=== PATIENT | male | born 1955 | race African-American/Black ===

== ENCOUNTER 2019-06-24 00:16 | Inpatient (IN) | payer OTHER ==
[~2019-06-24] VITALS: Ht 170.2 cm; Wt 71.0 kg
--- NOTE | 2019-06-24 00:34 | NUR ---
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 Per [facility], pt also had fever of 102. Cough present. Pt awake, alert. VSS. Pt speaks [employer]. 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
[2019-06-24] MEDS ORDERED: SODIUM CHLORIDE FLUSH 10ML SYR IVF ONE (01:00)
[2019-06-24] MEDS ORDERED: PLEASE ENTER ALLERGIES MC SCH (01:00)
[2019-06-24 01:12] LABS: BASOPHILS # (AUTO) 0.01 x10^3/uL (0-0.1); BASOPHILS % (AUTO) 0 % (0-1); EOSINOPHILS # (AUTO) 0.01 x10^3/uL (0-0.4); EOSINOPHILS % (AUTO) 0 % (1-7); LYMPHOCYTES # (AUTO) 1.52 x10^3/uL (1-3.4); LYMPHOCYTES % (AUTO) 43 % (22-44); MD NO; MEAN CORPUSCULAR HEMOGLOBIN 33.5 pg (27.5-34.5); MEAN CORPUSCULAR HGB CONC 34.4 g/dL (33.2-36.2); MEAN CORPUSCULAR VOLUME 97.6 fL (81-97); MEAN PLATELET VOLUME 9.6 fL (7.4-10.4); MONOCYTES # (AUTO) 0.61 x10^3/uL (0.2-0.8); MONOCYTES % (AUTO) 17 % (2-9); NEUTROPHILS # (AUTO) 1.34 x10^3/uL (1.8-6.8); NEUTROPHILS % (AUTO) 39 % (42-75); PLATELET COUNT 123 x10^3/uL (130-400); RED BLOOD COUNT 4.34 x10^6/uL (4.38-5.82); RED CELL DISTRIBUTION WIDTH 12.9 % (9.4-14.8)
--- NOTE | 2019-06-24 01:13 | NUR ---
Via chief mechanical officer (#[id number]), pt reports: No medical hx or past surgeries. No daily medications, no substance abuse. Pt reports he quit smoking in 1991. Pt thinks he might have an allergic type reaction to either to a blood glucose medicine or vitamins, but is unable to clarify. Pt reports he started feeling unwell Sunday night with cough, fever, stomach pain and increased urination. Pt reports his chest and stomach can feel "hot". Pt reports he has been in [facility] for 2 years and hasn't left since arriving. Via technician assistant, pt was informed that he will be admitted for a further evaulation of the findings in his chest and his other symptoms. Urinal was provided at bedside. Pt VU. Pt on pulse ox/HR monitor. Call light in place.
[2019-06-24 01:24] LABS: ALANINE AMINOTRANSFERASE 21 U/L (12-78); ALBUMIN 3.1 g/dL (3.4-5.0); ANION GAP 6 mmol/L (5-15); CALCIUM 7.6 mg/dL (8.5-10.1); CHLORIDE 107 mmol/L (98-107)
[2019-06-24 01:26] LABS: ALKALINE PHOSPHATASE 79 U/L (45-117); BILIRUBIN,TOTAL 0.7 mg/dL (0.2-1.0); TOTAL PROTEIN 6.7 g/dL (6.4-8.2)
--- NOTE | 2019-06-24 01:45 | NUR ---
TASK RN: REPORT CALLED TO FLOOR RN
--- NOTE | 2019-06-24 02:15 | NUR ---
Using ton container shipper, EKG performed on pt. VS retaken. Pt updated on wait for room.
--- NOTE | 2019-06-24 03:29 | NUR ---
Pt admitted to floor. At time of admit, pt alert, oriented and in NAD.
[2019-06-24 03:47] VITALS: BP 167/88
[2019-06-24] MEDS ORDERED: ENOXAPARIN 30 MG/0.3 ML SQ SCH (07:00)
[2019-06-24 07:52] VITALS: BP 159/98
[2019-06-24] MEDS ORDERED: SODIUM CHLORIDE 0.9% 1,000 ML IV SCH (09:00)
[2019-06-24] MEDS: SODIUM CHLORIDE 0.9% 1,000 ML IV SCH ×2 (09:32→19:45)
[2019-06-24] MEDS: ENOXAPARIN 40 MG/0.4 ML SQ SCH (09:32)
[2019-06-24] MEDS: MORPHINE SULFATE 4 MG/ML, 1ML IVPush PRN ×2 (09:33→17:50)
[2019-06-24] MEDS: BENZONATATE 100 MG CAPSULE PO SCH ×2 (10:30→17:50)
[2019-06-24 12:23] VITALS: BP 141/78
--- NOTE | 2019-06-24 15:32 | NUR ---
REC: REG/THIN DIET; DC PLAN PER PT/OT/MD. NO FURTHER SCREENING TECHNICIAN NEEDS AT THIS TIME. Addendum: 06/24/19 at [address] Amended: Links added.
[2019-06-24 16:36] LABS: RAPID INFLUENZA A POSITIVE (Negative); RAPID INFLUENZA B Negative (Negative)
[2019-06-24] MEDS: OSELTAMIVIR 75 MG CAPSULE PO SCH (19:45)
[2019-06-24 19:48] VITALS: BP 149/88
[2019-06-25 00:38] VITALS: BP 149/88
[2019-06-25] MEDS: BENZONATATE 100 MG CAPSULE PO SCH ×4 (00:38→20:29)
[2019-06-25 05:21] LABS: MEAN CORPUSCULAR HEMOGLOBIN 33.4 pg (27.5-34.5); MEAN CORPUSCULAR HGB CONC 33.9 g/dL (33.2-36.2); MEAN CORPUSCULAR VOLUME 98.5 fL (81-97); MEAN PLATELET VOLUME 10.1 fL (7.4-10.4); PLATELET COUNT 113 x10^3/uL (130-400); RED BLOOD COUNT 4.35 x10^6/uL (4.38-5.82); RED CELL DISTRIBUTION WIDTH 12.9 % (9.4-14.8)
[2019-06-25 05:22] LABS: ALBUMIN 2.8 g/dL (3.4-5.0); ANION GAP 7 mmol/L (5-15); CALCIUM 7.7 mg/dL (8.5-10.1); CHLORIDE 107 mmol/L (98-107)
[2019-06-25 05:25] LABS: ALANINE AMINOTRANSFERASE 24 U/L (12-78); ALKALINE PHOSPHATASE 72 U/L (45-117); BILIRUBIN,TOTAL 0.8 mg/dL (0.2-1.0); CREATININE 1.33 mg/dL (0.7-1.3); TOTAL PROTEIN 6.4 g/dL (6.4-8.2)
[2019-06-25 06:08] LABS: MD YES
[2019-06-25 06:10] LABS: <RBC MORPHOLOGY> NORMAL; EOS#(MANUAL) 0.03 x10^3/uL (0.0-0.4); EOS% (MANUAL) 1 % (1-7); LYMPH#(MANUAL) 1.73 x10^3/uL (1-3.4); LYMPHS% (MANUAL) 51 % (22-44); MONOS#(MANUAL) 0.37 x10^3/uL (0.3-2.7); MONOS% (MANUAL) 11 % (2-9); SEG#(MANUAL) 1.26 x10^3/uL (1.8-6.8); SEGS% (MANUAL) 37 % (42-75)
[2019-06-25 06:11] LABS: <PLATELET ESTIMATE> DECREASED; <PLT MORPHOLOGY> NORMAL PLT MORPH; SMUDGE CELLS 1+
[2019-06-25 07:05] VITALS: BP 146/77
[2019-06-25] MEDS: OSELTAMIVIR 75 MG CAPSULE PO SCH ×2 (09:54→20:30)
[2019-06-25] MEDS: ENOXAPARIN 40 MG/0.4 ML SQ SCH (09:54)
[2019-06-25 12:56] VITALS: BP 164/99
[2019-06-25] MEDS: MORPHINE SULFATE 4 MG/ML, 1ML IVPush PRN (13:34)
[2019-06-25 15:38] LABS: OCCULT BLOOD POSITIVE (NEGATIVE)
[2019-06-25] MEDS: PANTOPRAZOLE 40 MG IV IVPush SCH (16:45)
[2019-06-25 19:29] VITALS: BP 137/75
[2019-06-25] MEDS ORDERED: OMNIPAQUE 350 MG/ML, 100ML BOTTLE ONE (22:15)
[2019-06-26 01:32] VITALS: BP 139/86
[2019-06-26] MEDS: PANTOPRAZOLE 40 MG IV IVPush SCH ×2 (03:43→16:47)
[2019-06-26 07:01] VITALS: BP 165/98
[2019-06-26] MEDS: OSELTAMIVIR 75 MG CAPSULE PO SCH ×2 (10:55→22:08)
[2019-06-26] MEDS: BENZONATATE 100 MG CAPSULE PO SCH ×3 (10:55→21:00)
[2019-06-26 13:43] VITALS: BP 159/79
[2019-06-26] MEDS: ONDANSETRON 2MG/ML, 2ML IVPush PRN (16:48)
[2019-06-26] MEDS: MORPHINE SULFATE 4 MG/ML, 1ML IVPush PRN (16:48)
[2019-06-26 19:30] VITALS: BP 131/79
[2019-06-27 01:43] VITALS: BP 133/77
[2019-06-27] MEDS: MORPHINE SULFATE 4 MG/ML, 1ML IVPush PRN ×2 (01:45→22:06)
[2019-06-27] MEDS: ONDANSETRON 2MG/ML, 2ML IVPush PRN (01:45)
[2019-06-27 04:43] LABS: MEAN CORPUSCULAR HEMOGLOBIN 33.9 pg (27.5-34.5); MEAN CORPUSCULAR HGB CONC 34.1 g/dL (33.2-36.2); MEAN CORPUSCULAR VOLUME 99.4 fL (81-97); MEAN PLATELET VOLUME 9.1 fL (7.4-10.4); PLATELET COUNT 143 x10^3/uL (130-400); RED CELL DISTRIBUTION WIDTH 12.5 % (9.4-14.8)
[2019-06-27] MEDS: PANTOPRAZOLE 40 MG IV IVPush SCH ×2 (04:52→17:32)
[2019-06-27 04:58] LABS: ANION GAP 4 mmol/L (5-15); CHLORIDE 106 mmol/L (98-107)
[2019-06-27 04:59] LABS: CREATININE 1.33 mg/dL (0.7-1.3)
[2019-06-27 05:47] LABS: BASOPHILS # (AUTO) 0.02 x10^3/uL (0-0.1); BASOPHILS % (AUTO) 1 % (0-1); EOSINOPHILS # (AUTO) 0.06 x10^3/uL (0-0.4); EOSINOPHILS % (AUTO) 2 % (1-7); LYMPHOCYTES # (AUTO) 1.99 x10^3/uL (1-3.4); LYMPHOCYTES % (AUTO) 58 % (22-44); MD SCAN; MONOCYTES # (AUTO) 0.52 x10^3/uL (0.2-0.8); MONOCYTES % (AUTO) 15 % (2-9); NEUTROPHILS # (AUTO) 0.85 x10^3/uL (1.8-6.8); NEUTROPHILS % (AUTO) 25 % (42-75)
[2019-06-27 07:12] VITALS: BP 127/74
[2019-06-27] MEDS: OSELTAMIVIR 75 MG CAPSULE PO SCH ×2 (09:25→22:01)
[2019-06-27] MEDS: BENZONATATE 100 MG CAPSULE PO SCH ×3 (09:25→22:01)
[2019-06-27] MEDS ORDERED: FENTANYL PF 100 MCG/2ML ONE (12:55)
[2019-06-27] MEDS ORDERED: FLUMAZENIL 0.1 MG/1 ML, 5ML ONE (12:55)
[2019-06-27] MEDS ORDERED: MIDAZOLAM 1 MG/ML, 5ML ONE (12:55)
[2019-06-27] MEDS ORDERED: NALOXONE 1 MG/ML, 2ML ONE (12:55)
[2019-06-27 19:18] VITALS: BP 156/83
[2019-06-28 02:34] VITALS: BP 158/88
[2019-06-28] MEDS: MORPHINE SULFATE 4 MG/ML, 1ML IVPush PRN (02:47)
[2019-06-28] MEDS: ONDANSETRON 2MG/ML, 2ML IVPush PRN (02:47)
[2019-06-28] MEDS: PANTOPRAZOLE 40 MG IV IVPush SCH ×2 (02:47→15:24)
[2019-06-28 05:24] LABS: ANION GAP 4 mmol/L (5-15); CALCIUM 7.8 mg/dL (8.5-10.1); CHLORIDE 106 mmol/L (98-107)
[2019-06-28 05:25] LABS: CREATININE 1.26 mg/dL (0.7-1.3)
[2019-06-28 07:46] VITALS: BP 149/84
[2019-06-28] MEDS: BENZONATATE 100 MG CAPSULE PO SCH ×3 (09:00→21:01)
[2019-06-28] MEDS: OSELTAMIVIR 75 MG CAPSULE PO SCH ×2 (09:00→21:01)
[2019-06-28 13:15] VITALS: BP 153/76
[2019-06-28 19:29] VITALS: BP 153/89
[2019-06-29 01:08] VITALS: BP 174/94
[2019-06-29] MEDS: PANTOPRAZOLE 40 MG IV IVPush SCH ×2 (04:23→15:49)
[2019-06-29 08:24] VITALS: BP 150/92
[2019-06-29] MEDS ORDERED: SUCCINYLCHOLINE 20 MG/ML, 10ML ONE (10:10)
[2019-06-29] MEDS ORDERED: PROPOFOL 10 MG/ML, 20ML ONE (10:10)
[2019-06-29 11:04] VITALS: BP 146/99
[2019-06-29] MEDS: OSELTAMIVIR 75 MG CAPSULE PO SCH (11:14)
[2019-06-29] MEDS: BENZONATATE 100 MG CAPSULE PO SCH ×3 (11:14→21:07)
[2019-06-29 13:13] VITALS: BP 152/89
[2019-06-29 18:57] VITALS: BP 115/76
[2019-06-29] MEDS: MORPHINE SULFATE 4 MG/ML, 1ML IVPush PRN (21:07)
[2019-06-30] MEDS: PANTOPRAZOLE 40 MG IV IVPush SCH ×2 (03:45→16:24)
[2019-06-30 03:46] VITALS: BP 135/77
[2019-06-30 06:59] VITALS: BP 128/75
[2019-06-30] MEDS: BENZONATATE 100 MG CAPSULE PO SCH ×3 (09:19→20:28)
[2019-06-30 14:14] VITALS: BP 132/85
[2019-06-30 19:16] VITALS: BP 127/74
[2019-07-01 03:12] VITALS: BP 146/94
[2019-07-01] MEDS: PANTOPRAZOLE 40 MG IV IVPush SCH ×2 (04:23→16:41)
[2019-07-01 07:52] VITALS: BP 135/82
[2019-07-01] MEDS: BENZONATATE 100 MG CAPSULE PO SCH ×3 (08:11→20:59)
[2019-07-01 13:52] VITALS: BP 149/78
[2019-07-01 19:50] VITALS: BP 138/86
[2019-07-01] MEDS: MAGNESIUM HYDROXIDE 8%, 30ML UDC PO SCH (20:59)
[2019-07-02 01:21] VITALS: BP 137/76
[2019-07-02] MEDS: PANTOPRAZOLE 40 MG IV IVPush SCH (03:56)
[2019-07-02] MEDS: MAGNESIUM HYDROXIDE 8%, 30ML UDC PO SCH ×2 (07:48→20:28)
[2019-07-02] MEDS: BENZONATATE 100 MG CAPSULE PO SCH ×3 (08:09→20:27)
[2019-07-02] MEDS ORDERED: PINK BISMUTH 87.33 MG/5 ML ORAL SUSP PO PRN (08:30)
[2019-07-02 08:57] VITALS: BP 143/78
[2019-07-02] MEDS: metroNIDAZOLE 500 MG TABLET PO SCH ×3 (10:47→20:28)
[2019-07-02] MEDS: TETRACYCLINE HCL 250 MG CAPSULE PO SCH ×3 (10:47→20:27)
[2019-07-02] MEDS: PANTOPRAZOLE 20MG TABLET PO SCH (15:05)
[2019-07-02 15:59] VITALS: BP 148/87
[2019-07-02 20:18] VITALS: BP 142/95
[2019-07-03 02:30] VITALS: BP 137/90
[2019-07-03] MEDS: PANTOPRAZOLE 20MG TABLET PO SCH ×2 (05:51→16:09)
[2019-07-03] MEDS: TETRACYCLINE HCL 250 MG CAPSULE PO SCH ×4 (05:51→21:15)
[2019-07-03 07:31] VITALS: BP 135/83
[2019-07-03] MEDS: MAGNESIUM HYDROXIDE 8%, 30ML UDC PO SCH ×2 (08:22→21:15)
[2019-07-03] MEDS: BENZONATATE 100 MG CAPSULE PO SCH ×3 (08:22→21:16)
[2019-07-03] MEDS: metroNIDAZOLE 500 MG TABLET PO SCH ×3 (08:22→21:15)
[2019-07-03 12:51] VITALS: BP 129/75
[2019-07-03 19:13] VITALS: BP 107/68
[2019-07-04 01:07] VITALS: BP 122/78
[2019-07-04] MEDS: PANTOPRAZOLE 20MG TABLET PO SCH (06:26)
[2019-07-04] MEDS: TETRACYCLINE HCL 250 MG CAPSULE PO SCH ×3 (06:26→14:47)
[2019-07-04 06:38] VITALS: BP 130/80
[2019-07-04] MEDS: MAGNESIUM HYDROXIDE 8%, 30ML UDC PO SCH (07:02)
[2019-07-04] MEDS: metroNIDAZOLE 500 MG TABLET PO SCH (08:05)
[2019-07-04] MEDS: BENZONATATE 100 MG CAPSULE PO SCH ×2 (08:05→14:47)
[2019-07-04] MEDS ORDERED: METR500T PO (10:44)
[2019-07-04] MEDS ORDERED: BISM262O17 PO (10:44)
[2019-07-04] MEDS ORDERED: TETR-16 PO (10:44)
[2019-07-04] MEDS ORDERED: PANT20TA3 PO (10:44)
== END 2019-07-04 15:28 | disposition home or self-care (01) | DRG 814 ==
LOC: ED 03:29 → EDIP 03:31 → 4NW 03:39
PROVIDERS: ADMIT Family Medicine; ATTEND Family Medicine
PROC: 0WBC3ZX Excision of Mediastinum, Percutaneous Approach, Diagnostic (ICD-10-PCS; principal; 2019-06-27)
PROC: 0DB68ZX Excision of Stomach, Via Natural or Artificial Opening Endoscopic, Diagnostic (ICD-10-PCS; 2019-06-29)
PROC: 0DB18ZX Excision of Upper Esophagus, Via Natural or Artificial Opening Endoscopic, Diagnostic (ICD-10-PCS; 2019-06-29)
PROC: 0DB38ZX Excision of Lower Esophagus, Via Natural or Artificial Opening Endoscopic, Diagnostic (ICD-10-PCS; 2019-06-29)
DX: D15.0 Benign neoplasm of thymus (principal); K29.71 Gastritis, unspecified, with bleeding; E87.2 Acidosis; N17.9 Acute kidney failure, unspecified; R65.10 Systemic inflammatory response syndrome (SIRS) of non-infectious origin without acute organ dysfunction; B96.81 Helicobacter pylori [H. pylori] as the cause of diseases classified elsewhere; J10.1 Influenza due to other identified influenza virus with other respiratory manifestations; K22.8 Other specified diseases of esophagus; R13.14 Dysphagia, pharyngoesophageal phase; Z87.11 Personal history of peptic ulcer disease; Z87.891 Personal history of nicotine dependence; R47.02 Dysphasia; K31.9 Disease of stomach and duodenum, unspecified; D17.1 Benign lipomatous neoplasm of skin and subcutaneous tissue of trunk
CPT/HCPCS: 32405; 36415; 70460; 70491; 74177; 74220; 77012; 80048; 80053; 82272; 82607; 83605; 83615; 83735; 84100; 84145; 85025; 87400; 87486; 87581; 87633; 87798; 87806; 88305; 88341; 88342; 93005; 99156; 99157; 99285; G0378; J1650; J2250; J2405; J2704; J3010; Q9967; C9113; G0475; J0330; J2270; J2310; J7030

== ENCOUNTER 2020-10-12 14:35 | Outpatient (CLI) | payer OTHER ==
[~2020-10-12 14:35] MED LIST: BISM262O17 PO; METR500T PO; PANT20TA4 PO; TETR-16 PO
[2020-10-12 16:55] LABS: MEAN CORPUSCULAR HGB CONC 33.6 g/dL (33.2-36.2); MEAN PLATELET VOLUME 8.7 fL (7.4-10.4); PLATELET COUNT 222 x10^3/uL (130-400); RED BLOOD COUNT 4.32 x10^6/uL (4.38-5.82); RED CELL DISTRIBUTION WIDTH 12.6 % (9.4-14.8)
[2020-10-12 17:02] LABS: ALANINE AMINOTRANSFERASE 20 U/L (12-78); ALBUMIN 2.9 g/dL (3.4-5.0); ANION GAP 3 mmol/L (5-15); CALCIUM 8.7 mg/dL (8.5-10.1); CHLORIDE 107 mmol/L (98-107); CREATININE 1.16 mg/dL (0.7-1.3)
[2020-10-12 17:13] LABS: ALKALINE PHOSPHATASE 142 U/L (45-117); BILIRUBIN,TOTAL 0.5 mg/dL (0.2-1.0); TOTAL PROTEIN 8.1 g/dL (6.4-8.2)
== END 2020-10-12 23:59 | disposition home or self-care (01) ==
LOC: LAB 14:35
PROVIDERS: ATTEND Nurse Practitioner Family
DX: Z13.1 Encounter for screening for diabetes mellitus (principal); Z13.0 Encounter for screening for diseases of the blood and blood-forming organs and certain disorders involving the immune mechanism; R22.1 Localized swelling, mass and lump, neck
CPT/HCPCS: 36415; 80053; 84443; 85027

== ENCOUNTER 2021-01-03 16:28 | Outpatient (CLI) | payer OTHER | END 2021-01-03 23:59 | disposition home or self-care (01) | LOC: LAB 16:28 | PROVIDERS: ATTEND Internal Medicine | DX: C37 Malignant neoplasm of thymus (principal) ==